=== PATIENT | female | born 1950 ===

== ENCOUNTER 2020-07-13 13:24 | Outpatient (CLI) | payer MEDICARE, OTHER, SELFPAY ==
--- NOTE | ~2020-07-13 | CT_ITS ---
EXAMINATION: CT chest high resolution wo co DATE: 07/13/2020 13:49 INDICATION: J84.9 - Interstitial pulmonary disease, unspecified TECHNIQUE: Computed tomography (CT) of the chest was performed without intravenous contrast. Addition al 3D reconstructions utilizing coronal maximum intensity projection (MIP) were performed. Automated exposure control and iterative reconstruction technique were employed. The dose-length product was 12 6.75 mGy-cm. COMPARISON: 09/29/2018 FINDINGS: Again seen is mild scarring along a linear suture lines at the periphery of the lateral segment of th e right middle lobe and posterior segment of the right upper lobe consistent with prior partial pneum onectomy. No significant interval change in reticular opacities scattered along the periphery of the bilateral upper and lower lobes and lingula. Mild emphysema. No new airspace opacities, pulmonary greyson ma or pleural effusion. There are few scattered small calcified pulmonary nodules in the right lung a long with calcified right hilar lymph nodes and a few hepatic and splenic calcifications, all consist ent with old granulomatous disease. Heart size is normal. Atherosclerotic coronary artery calcificati on. Aortic valve calcification. No pericardial effusion. Thoracic aorta is normal in caliber. No path ologically enlarged thoracic lymphadenopathy. Thoracic kyphosis with multiple compression fractures a t the thoracic spine, several which are chronic and couple age-indeterminate at T5 and T6 which appea r more recent event which are new since the prior study. IMPRESSION: 1. Mild emphysema with minimal change in a small amount of scattered mild peripheral reticular opacit ies throughout both lungs suggesting chronic interstitial lung disease. This could be either usual in terstitial pneumonia (UIP) or nonspecific interstitial pneumonia (NSIP) chronic interstitial lung dis ease. Suture lines at the periphery of the right upper and middle lobes suggest prior pneumonectomies potentially for open lung biopsy and would correlate with any prior pathologic analysis. Reviewed, dictated and finalized at location A. IMPRESSION: 1. Mild emphysema with minimal change in a small amount of scattered mild perip heral reticular opacities throughout both lungs suggesting chronic interstitial lung disease. This could be either usual interstitial pneumonia (UIP) or nonsp ecific interstitial pneumonia (NSIP) chronic interstitial lung disease. Suture lines at the periphery of the right upper and middle lobes suggest prior pneumo nectomies potentially for open lung biopsy and would correlate with any prior p athologic analysis.
== END 2020-07-13 13:25 | disposition home or self-care (01) ==
PROVIDERS: PCP Internal Medicine Infectious Disease; Visit Provider Nurse Practitioner Family
DX: J84.9 Interstitial pulmonary disease, unspecified (principal); J43.9 Emphysema, unspecified
CPT/HCPCS: 71250